=== PATIENT | male | born 1990 | race Caucasian/White ===

== ENCOUNTER 2017-09-26 19:33 | Emergency (ER) | payer SELFPAY ==
--- NOTE | 2017-09-26 20:43 | RADIOLOGY REPORT (SQ) ---
EXAM DESCRIPTION: ANKLE RIGHT COMPLETE COMPLETED DATE/TIME: 09/26/2017 8:36 pm REASON FOR STUDY: pain, s/p fall from ladder COMPARISON: None. NUMBER OF VIEWS: Three views. TECHNIQUE: AP, lateral, and oblique radiographic images acquired of the right ankle. LIMITATIONS: None. FINDINGS: MINERALIZATION: Normal. BONES: No acute fracture or dislocation. No worrisome bone lesions. JOINTS: No effusions. SOFT TISSUES: No soft tissue swelling. No foreign body. OTHER: No other significant finding. IMPRESSION: NEGATIVE STUDY OF THE RIGHT ANKLE. NO RADIOGRAPHIC EVIDENCE OF ACUTE INJURY. TECHNICAL DOCUMENTATION: JOB ID: [id number]- All Rights Reserved
--- NOTE | 2017-09-26 21:55 | ER Document Report ---
ED Extremity Problem, Lower <DARWIN HERNANDES - Last Filed: 09/26/17 22:33> - General Mode of Arrival: Ambulatory Information source: Patient <JUDD JAIN - Last Filed: 09/26/17 22:45> - General Chief Complaint: Ankle Injury Stated Complaint: RIGHT ANKLE INJURY Time Seen by Provider: 09/26/17 21:25 Notes: Patient is a 26-year-old male who presents to the emergency department today with complaints of right ankle pain. Patient states he was on a ladder putting up [employer] decorations yesterday at [id number] when he lost his balance falling off and twisting his right ankle. Patient denies any other injuries. ( JUDD JAIN) - Related Data Allergies/Adverse Reactions: No Known Allergies Allergy (Unverified 09/26/17 19:48) Past Medical History - General Information source: Patient - Social History Smoking Status: Never Smoker Cigarette use (# per day): No Frequency of alcohol use: None Drug Abuse: None Lives with: Family Family History: Reviewed & Not Pertinent Patient has suicidal ideation: No Patient has homicidal ideation: No Renal/ Medical History: Denies: Hx Peritoneal Dialysis Past Surgical History: Reports: Hx Orthopedic Surgery - KNEE - Immunizations Hx Diphtheria, Pertussis, Tetanus Vaccination: No <JUDD JAIN - Last Filed: 09/26/17 22:45> Review of Systems - Review of Systems Constitutional: No symptoms reported EENT: No symptoms reported Cardiovascular: No symptoms reported Respiratory: No symptoms reported Gastrointestinal: No symptoms reported Genitourinary: No symptoms reported Male Genitourinary: No symptoms reported Musculoskeletal: See HPI, Joint pain - right ankle Skin: No symptoms reported Hematologic/Lymphatic: No symptoms reported Neurological/Psychological: No symptoms reported -: Yes All other systems reviewed and negative <JUDD JAIN - Last Filed: 09/26/17 22:45> Physical Exam <DARWIN HERNANDES - Last Filed: 09/26/17 22:33> <JUDD JAIN - Last Filed: 09/26/17 22:45> - Vital signs Vitals: Temp Pulse Resp BP Pulse Ox 98.9 F 100 16 142/93 H 96 09/26/17 19:47 09/26/17 19:47 09/26/17 19:47 09/26/17 19:47 09/26/17 19:47 - Notes Notes: Physical Exam: General: Alert, appears well. HEENT: Normocephalic. Atraumatic. PERRLA. Extraocular movements intact. Oropharynx clear. Neck: Supple. Respiratory: No respiratory distress. Abdominal: Normal Inspection. No distension. Extremities: Tenderness with palpation and moderate swelling over the right ankle. No ecchymosis. Neurological: Normal cognition. AAOx4. Normal speech. Psychological: Normal affect. Normal Mood. Skin: Warm. Dry. Normal color. (JUDD JAIN) Course - Diagnostic Test Radiology reviewed: Image reviewed, Reports reviewed - X-ray of the right ankle does not show fracture. <DARWIN HERNANDES - Last Filed: 09/26/17 22:33> <JUDD JAIN - Last Filed: 09/26/17 22:45> - Re-evaluation Re-evalutation: 09/26/17 22:33 The posterior splint was placed on the right ankle by the PCT. This was examined and found to provide good support and stability for the ankle. Capillary refill and sensation to the toes remains intact. The patient does have his own crutches he brought with him. (DARWIN HERNANDES) - Vital Signs Vital signs: Temp Pulse Resp BP Pulse Ox 98.7 F 90 16 138/84 H 98 09/26/17 22:22 09/26/17 22:22 09/26/17 22:22 09/26/17 22:22 09/26/17 22:22 Discharge <DARWIN HERNANDES - Last Filed: 09/26/17 22:33> <JUDD JAIN - Last Filed: 09/26/17 22:45> - Discharge Clinical Impression: Moderate right ankle sprain Qualifiers: Encounter type: initial encounter Qualified Code(s): S93.401A - Sprain of unspecified ligament of right ankle, initial encounter Condition: Stable Disposition: HOME, SELF-CARE Additional Instructions: Sprained Ankle Your sprained ankle results from stretching or tearing of the ligaments which support the ankle. This usually results from twisting the foot inward and under. The ligaments will require time and protection in order to heal properly. Many ankle sprains are quite disabling, and should be taken seriously. The usual treatment for an ankle sprain is cold packs; protection with tape , splints, or wraps; elevation; and staying off the ankle for at least a day. As the ankle improves, you can walk IF it's not painful to bear weight. Sports are best postponed until healing is complete. More serious sprains usually require strengthening exercises after early healing. Your physician has assessed the seriousness of the ligament injury to your ankle. However, the treatment may change, depending on how your ankle progresses. If further exams were recommended, it is important that you follow through. Call the doctor if your foot becomes numb, painful, or severely swollen. //////////////////////////////////////////////////////////////////////////////// //////////////////////////////////////////////////////////////////////////////// ///////////////// Use a posterior splint to protect the ankle. Use your crutches to prevent weight-bearing. Elevate your foot above the heart is much as possible. Take ibuprofen every 8 hours for pain. Take pain medication as prescribed if needed. Call [facility] Thursday to schedule appointment in the next few days. RETURN TO THE EMERGENCY ROOM IF ANY NEW OR WORSENING SYMPTOMS. Prescriptions: Oxycodone HCl/Acetaminophen [Percocet 5-325 mg Tablet] 1 tab PO ASDIR PRN #15 tablet PRN Reason: Referrals: [facility] ([facility]) [Provider Group] - Follow up in 3-5 days (Call Thursday for an appointment in the next few days.) Scribe Attestation: 09/26/17 22:10 I personally performed the services described in the documentation, reviewed and edited the documentation which was dictated to the scribe in my presence, and it accurately records my words and actions. (DARWIN HERNANDES) Scribe Documentation - Scribe Written by Venkat:: Venkat Jovel, 09/26/2017 [id number] acting as scribe for :: Eligio <JUDD JAIN - Last Filed: 09/26/17 22:45>
[2017-09-26] MEDS ORDERED: HYDROCODONE/ACETAMINOPHEN 5-325 MG 6 TAB/DSPK PO PRN (22:16)
[2017-09-26 22:23] VITALS: BP 138/84
== END 2017-09-26 22:22 | disposition home or self-care (01) ==
LOC: ER 19:33
DX: S93.401A Sprain of unspecified ligament of right ankle, initial encounter (principal); M25.571 Pain in right ankle and joints of right foot; W11.XXXA Fall on and from ladder, initial encounter; Y93.89 Activity, other specified
CPT/HCPCS: 99283

== ENCOUNTER 2020-10-19 09:43 | Emergency (ER) | payer OTHER ==
[2020-10-19 09:50] VITALS: BP 147/100
[2020-10-19] MEDS ORDERED: DEXAMETHASONE SOD PHOS INJ 10 MG/1 ML VIAL IM ONE (11:18)
--- NOTE | 2020-10-19 11:23 | ER Document Report ---
HPI - HPI Time Seen by Provider: 10/19/20 11:11 Pain Level: 3 Context: Patient is a 29-year-old male no past medical history presents emergency department with a chief complaint of low back pain. Patient states that he was working on a deck for his work and felt pain in his back. He went to a chiropractor yesterday and he returned today. He states that he had x-rays done at the chiropractor's office. Denies any loss of bladder or bowel function, IV drug use or history of IV drug use, known cancer, saddle anesthesia, or inability to walk. States that it does hurt to walk and he can only walk for a little bit. He has been taking ibuprofen and Tylenol. Last dose of ibuprofen was at 8:00 this morning. - ROS Systems Reviewed and Negative: Yes All other systems reviewed and negative - CONSTITUTIONAL Constitutional: DENIES: Fever, Chills - RESPIRATORY Respiratory: DENIES: Trouble Breathing, Coughing - MUSCULOSKELETAL Musculoskeletal: REPORTS: Back Pain - Low back. DENIES: Extremity pain - DERM Skin Color: Normal Skin Problems: None Past Medical History - General Information source: Patient - Social History Smoking Status: Unknown if Ever Smoked Family History: Reviewed & Not Pertinent Renal/ Medical History: Denies: Hx Peritoneal Dialysis Past Surgical History: Reports: Hx Orthopedic Surgery - KNEE - Immunizations Hx Diphtheria, Pertussis, Tetanus Vaccination: No Vertical Provider Document - CONSTITUTIONAL Agree With Documented VS: Yes Exam Limitations: No Limitations General Appearance: No Apparent Distress - HEENT HEENT: Atraumatic, Normocephalic, PERRLA - NECK Neck: Normal Inspection - RESPIRATORY Respiratory: Breath Sounds Normal, No Respiratory Distress - CARDIOVASCULAR Cardiovascular: Regular Rate, Regular Rhythm Pulses: Normal: Radial - MUSCULOSKELETAL/EXTREMETIES Musculoskeletal/Extremeties: FROM, Tender - Bilateral low back, No Edema - NEURO Level of Consciousness: Awake, Alert, Appropriate Motor/Sensory: No Motor Deficit, No Sensory Deficit - DERM Integumentary: Warm, Dry, No Rash Course - Re-evaluation Re-evalutation: 10/19/20 11:32 Differential diagnosis for back pain includes muscle spasm, muscle strain, slipped disc cauda equina syndrome, vertebral fracture, vertebral tumor, epidural abscess, pyelonephritis, or AAA. Based on history and exam, the most likely etiology of the patient's back pain is muscle strain. Emergent MRI is not indicated at this time because the patient does not have new weakness, or cauda equina syndrome. Patient does not have bladder or bowel dysfunction. Patient does not have history of IV drug use, therefore, I do not suspect an epidural abscess. Patient does not have recent weight loss or night sweats, and does not have a known history of cancer. We will give him Toradol, Robaxin, and a dose of Decadron. He is in agreement with this plan. He will follow up with [facility] for surgery if needed and [facility]. Follow-up precautions were given. Verbal discharge instructions were given to the patient. They verbalized understanding. They are stable for discharge. - Vital Signs Vital signs: Temp Pulse Resp BP Pulse Ox 98.6 F 66 20 147/100 H 98 10/19/20 09:48 10/19/20 09:48 10/19/20 09:48 10/19/20 09:48 10/19/20 09:48 - Laboratory Results Critical Laboratory Results Reviewed: No Critical Results - Radiology Results Critical Radiology Results Reviewed: No Critical Results Discharge - Discharge Clinical Impression: Muscle strain Low back pain Qualifiers: Chronicity: acute Back pain laterality: bilateral Sciatica presence: without sciatica Qualified Code(s): M54.5 - Low back pain Condition: Stable Disposition: HOME, SELF-CARE Instructions: Ice Packs ([facility]), Low Back Pain ([facility]), Muscle Strain ([facility]), Warm Packs ([facility]) Additional Instructions: You were seen today in the emergency department for back pain. Your back pain is most consistent with a muscle strain. You may take Toradol and acetaminophen 1000 mg every 6 hours as needed for the pain. Do not take ibuprofen while on Toradol. Take the Robaxin as needed. You may also buy [id number] A spercreme with lidocaine and apply to the area per box instructions. If you develop a fever greater than 100.4 F, lose bowel or bladder function, are unable to walk, or have any symptoms that are worrisome to you, please return to the emergency department. Prescriptions: Methocarbamol [Robaxin 500 mg Tablet] 1,000 mg PO BID PRN #20 tablet PRN Reason: Ketorolac Tromethamine [Toradol 10 mg Tablet] 10 mg PO Q6HP PRN #20 tablet PRN Reason: Forms: Return to Work Referrals: [facility] [Provider Group] - Follow up in 1 week [facility] [Provider Group] - Follow up in 1 week [facility] ([facility] [Provider Group] - Follow up as needed
== END 2020-10-19 11:40 | disposition home or self-care (01) ==
LOC: ER 09:43
DX: S39.012A Strain of muscle, fascia and tendon of lower back, initial encounter (principal); X58.XXXA Exposure to other specified factors, initial encounter; Y93.H3 Activity, building and construction; Y92.9 Unspecified place or not applicable; Y99.0 Civilian activity done for income or pay
CPT/HCPCS: 99284; 96372; J1100